=== PATIENT | male | born 1955 | race Caucasian/White ===

== ENCOUNTER → 2016-03-22 | Outpatient (CLI) | payer BC, OTHER ==
[~2016-03-22] MED LIST: ISOVUE-370 76% 100ML VIAL (Q9967) As Ordered ONE
--- NOTE | 2016-03-22 12:09 | REP ---
CT ANGIO HEAD: HISTORY: Carotid stenosis. CONTRAST: Isovue 370, 100 mL. There is no aneurysm, arteriovenous malformation or atherosclerotic lesion. There is origin of the left posterior cerebral artery. Major intracranial vessels are patent. The vertebral artery is equal in size. IMPRESSION: Normal CT angio head. Signed by Garfield Macias MD 03/22/2016 12:15 P
--- NOTE | 2016-03-22 12:11 | REP ---
CT ANGIO NECK: HISTORY: Stenosis. CONTRAST: Isovue 370, 100 mL. The distal common carotid arteries and origins of the external and internal carotid arteries are normal. The vertebral arteries are equal in size and patent. There are no atherosclerotic lesions. IMPRESSION: Normal CT angio neck. Signed by Garfield Macias MD 03/22/2016 12:15 P
== END ==
LOC: M RAD 10:39
PROVIDERS: ATTEND Neurological Surgery
DX: I65.23 Occlusion and stenosis of bilateral carotid arteries (principal)
CPT/HCPCS: 70496; 70498; Q9967

== ENCOUNTER → 2017-03-10 | Outpatient (CLI) | payer BC, OTHER ==
[~2017-03-10] MED LIST changes: +ISOVUE-370 76% 100ML VIAL (Q9967) As Ordered; -ISOVUE-370 76% 100ML VIAL (Q9967) As Ordered ONE
== END ==
LOC: M RAD 12:41
DX: I66.09 Occlusion and stenosis of unspecified middle cerebral artery (principal)
CPT/HCPCS: Q9967

== ENCOUNTER → 2018-01-03 | Outpatient (CLI) | payer BC, OTHER | LOC: M SLEEP HO 10:49 | DX: R06.83 Snoring (principal) | CPT/HCPCS: G0399 ==

== ENCOUNTER → 2018-07-18 | Outpatient (CLI) | payer BC, OTHER ==
--- NOTE | 2018-07-18 10:38 | REP ---
MRA CAROTIDS WITHOUT CONTRAST: HISTORY: Infarction. COMPARISON: CT ANGIO neck 03/10/2017. The distal common carotid arteries and origins of the external and internal carotid arteries are normal. The vertebral arteries are equal in size and patent. There are no atherosclerotic lesions. IMPRESSION:Normal MRA carotids. Electronically Signed by Garfield Macias MD 07/18/2018 11:06 A
--- NOTE | 2018-07-18 10:46 | REP ---
MRA Brain without contrast History: Middle cerebral artery stenosis Comparison: CT ANGIO 03/10/2017 3-D [id number] MR angiography was performed at the level of the lower [place]. There is no aneurysm or arteriovenous malformation. Mild atherosclerotic disease involves the cavernous internal carotid arteries , M1 segment of the left middle cerebral artery and the left middle cerebral artery trifurcation. The A1 segment of the left anterior cerebral artery is hypoplastic. There is origin of the left posterior cerebral artery. The vertebral arteries are equal in size. Impression: 1. There is no aneurysm or arteriovenous malformation. 2. Atherosclerotic disease as described above. Electronically Signed by Garfield Macias MD 07/18/2018 10:37 A
== END ==
LOC: M RAD 08:36
DX: I66.09 Occlusion and stenosis of unspecified middle cerebral artery (principal); I65.23 Occlusion and stenosis of bilateral carotid arteries

== ENCOUNTER → 2018-09-06 | Outpatient (REF) | payer BC, OTHER ==
[2018-09-06 16:45] LABS: BASO % 0.7 % (0.0-1.0); EOS # 0.1 10^3/uL (0.0-0.50); EOS % 2.8 % (0.0-3.0); HEMATOCRIT 42.3 % (42.0-52.0); HEMOGLOBIN 13.8 g/dl (13.5-17.5); LYMPH # 0.9 10^3/uL (1.5-4.5); LYMPH % 20.3 % (24.0-44.0); MEAN CORPUSCULAR HEMOGLOBIN 31.2 pg (27.0-33.0); MEAN CORPUSCULAR HGB CONC 32.6 g/dl (32.0-36.5); MEAN CORPUSCULAR VOLUME 95.7 fl (80.0-96.0); MONO # 0.6 10^3/uL (0.0-0.8); MONO % 13.5 % (0.0-5.0); NEUTROPHILS # 2.7 10^3/uL (1.8-7.7); NEUTROPHILS % 62.5 % (36.0-66.0); PLATELET COUNT, AUTOMATED 157 10^3/uL (150-450); RED BLOOD COUNT 4.42 10^6/uL (4.30-6.10); WHITE BLOOD COUNT 4.3 10^3/uL (4.0-10.0)
[2018-09-06 16:54] LABS: APPEARANCE, URINE CLEAR (CLEAR); BACTERIA, URINE AUTO NEGATIVE (NEGATIVE); BILIRUBIN, URINE AUTO NEGATIVE (NEGATIVE); BLOOD, URINE BLOOD 1+ (NEGATIVE); COLOR, URINE COLORLESS (YELLOW); GLUCOSE, URINE (UA) AUTO NEGATIVE (NEGATIVE); KETONE, URINE AUTO NEGATIVE (NEGATIVE); LEUKOCYTE ESTERASE, URINE AUTO NEGATIVE (NEGATIVE); NITRITE, URINE AUTO NEGATIVE (NEGATIVE); PROTEIN, URINE AUTO NEGATIVE (NEGATIVE); RBC, URINE AUTO 0 /HPF (0-3); SPECIFIC GRAVITY URINE AUTO 1.003 (1.002-1.035); SQUAMOUS EPITHELIAL CELL UR AU 0 /HPF (0-6); UROBILINOGEN, URINE AUTO 0.2 mg/dL (0.0-2.0); WBC, URINE AUTO 0 /HPF (0-3)
[2018-09-06 16:55] LABS: ALBUMIN 3.9 GM/DL (3.2-5.2); ALT/SGPT 36 U/L (12-78); BILIRUBIN,TOTAL 0.6 MG/DL (0.2-1.0); BLOOD UREA NITROGEN 14 MG/DL (7-18); CALCIUM LEVEL 8.3 MG/DL (8.8-10.2); CARBON DIOXIDE LEVEL 31 MEQ/L (21-32); CHLORIDE LEVEL 106 MEQ/L (98-107); CHOLESTEROL LEVEL 133 MG/DL (<200); CREATININE FOR GFR 0.73 MG/DL (0.70-1.30); GLOMERULAR FILTRATION RATE > 60.0 (>49); GLUCOSE, FASTING 78 MG/DL (70-100); HDL CHOLESTEROL 38 MG/DL (>40); LDL CHOLESTEROL 55 MG/DL (<100); NON-HDL-C 95 MG/DL; POTASSIUM SERUM 3.7 MEQ/L (3.5-5.1); SODIUM LEVEL 141 MEQ/L (136-145); TOTAL PROTEIN 6.7 GM/DL (6.4-8.2); TRIGLYCERIDES LEVEL 198 MG/DL (<150)
== END ==
LOC: M SFHCLERA 10:33
PROVIDERS: ATTEND Family Medicine
DX: R97.20 Elevated prostate specific antigen [PSA] (principal); E78.5 Hyperlipidemia, unspecified; E66.3 Overweight; I10 Essential (primary) hypertension
CPT/HCPCS: 80053; 80061; 81001; 83036; 84443; 85025; G0103

== ENCOUNTER → 2019-06-11 | Outpatient (CLI) | payer BC, OTHER, MEDICARE ==
[2019-06-11 16:44] LABS: ALBUMIN 3.9 GM/DL (3.2-5.2); ALT/SGPT 30 U/L (12-78); BILIRUBIN,TOTAL 0.5 MG/DL (0.2-1.0); BLOOD UREA NITROGEN 14 MG/DL (7-18); CALCIUM LEVEL 8.9 MG/DL (8.8-10.2); CARBON DIOXIDE LEVEL 30 MEQ/L (21-32); CHLORIDE LEVEL 104 MEQ/L (98-107); CREATININE FOR GFR 0.74 MG/DL (0.70-1.30); GLOMERULAR FILTRATION RATE > 60.0 (>49); GLUCOSE, FASTING 87 MG/DL (70-100); LDH LACTATE DEHYDROGENASE 134 U/L (87-241); POTASSIUM SERUM 3.5 MEQ/L (3.5-5.1); SODIUM LEVEL 140 MEQ/L (136-145); TOTAL PROTEIN 6.4 GM/DL (6.4-8.2)
[2019-06-11 16:48] LABS: BASO % 0.6 % (0.0-1.0); EOS # 0.1 10^3/uL (0.0-0.5); EOS % 2.9 % (0.0-3.0); HEMOGLOBIN 12.7 g/dl (13.5-17.5); LYMPH % 20.4 % (24.0-44.0); MEAN CORPUSCULAR HEMOGLOBIN 30.5 pg (27.0-33.0); MEAN CORPUSCULAR HGB CONC 32.6 g/dl (32.0-36.5); MEAN CORPUSCULAR VOLUME 93.5 fl (80.0-96.0); MONO # 0.4 10^3/uL (0.0-0.8); MONO % 9.2 % (0.0-5.0); NEUTROPHILS # 3.2 10^3/uL (1.5-8.5); NEUTROPHILS % 66.7 % (36.0-66.0); PLATELET COUNT, AUTOMATED 146 10^3/uL (150-450); RED BLOOD COUNT 4.17 10^6/uL (4.30-6.10); WHITE BLOOD COUNT 4.8 10^3/uL (4.0-10.0)
== END ==
LOC: M WUC 13:51
PROVIDERS: ATTEND Internal Medicine Hematology & Oncology
DX: C83.36 Diffuse large B-cell lymphoma, intrapelvic lymph nodes (principal)

== ENCOUNTER → 2019-06-25 | Outpatient (CLI) | payer MEDICARE, OTHER ==
[~2019-06-25] MED LIST changes: +GASTROGRAFIN SOLUTION 30ML (Q9963) As Ordered ONE; -ISOVUE-370 76% 100ML VIAL (Q9967) As Ordered; +ISOVUE-370 76% 100ML VIAL As Ordered ONE
--- NOTE | 2019-06-25 14:15 | REP ---
REASON: History of lymphoma. All prior chest CTs were reviewed, the latest of which is dated 08/19/2014. Contrast today 100 mL Isovue 370. Mediastinum and pulmonary dinorah are within normal limits. There is no mass or adenopathy. There are no pleural or pericardial effusions. The imaged osseous structures are stable and intact. IMPRESSION: Evaluation of the lung [place] shows no new abnormal nodules, masses, or opacities. IMPRESSION: Stable CT examination of the chest. There is no evidence of acute recurrent disease. Electronically Signed by Kirill Antonio DO 06/25/2019 03:08 P
--- NOTE | 2019-06-25 14:20 | REP ---
REASON: Followup lymphoma. Latest prior for comparison 08/19/2014. All other priors were also reviewed. CONTRAST: 100 mL Isovue 370. The liver, gallbladder, spleen, pancreas, kidneys are unchanged and within normal limits. There is slight nodularity of the left adrenal gland status quo. The right adrenal gland is unremarkable and also stable. The abdominal aorta and para-aortic regions are within normal limits. The para-aortic adenopathy seen previously has resolved. Small lymph nodes are now present. The intra-abdominal bowel loops and their mesenteries are within normal limits. There is no intra-abdominal mass or adenopathy. There is no free fluid or free air. CT PELVIS: Pelvic sidewall adenopathy seen previously has resolved. Small pelvic sidewall lymph nodes are present. There is no free fluid or free air. The pelvic bowel loops and their mesenteries are within normal limits. Bone window technique throughout the examination shows the osseous structures to be stable and intact. IMPRESSION: There is no evidence of acute or recurrent disease. Findings as described above. Electronically Signed by Kirill Antonio DO 06/25/2019 03:08 P
== END ==
LOC: M RAD 10:57
PROVIDERS: ATTEND Nurse Practitioner Family
DX: C85.90 Non-Hodgkin lymphoma, unspecified, unspecified site (principal)
CPT/HCPCS: 71260; 74177; Q9963; Q9967

== ENCOUNTER → 2019-08-07 | Outpatient (CLI) | payer MEDICARE, OTHER ==
[2019-08-07 14:30] LABS: BLOOD UREA NITROGEN 13 MG/DL (7-18); CREATININE FOR GFR 0.82 MG/DL (0.70-1.30); GLOMERULAR FILTRATION RATE > 60.0 (>49)
== END ==
LOC: M WUC 10:37
PROVIDERS: ATTEND Neurological Surgery
DX: I66.09 Occlusion and stenosis of unspecified middle cerebral artery (principal)

== ENCOUNTER → 2019-11-03 | Outpatient (CLI) | payer MEDICARE, OTHER | LOC: M LABSMTC 09:50 | PROVIDERS: ATTEND Pediatrics | DX: Z20.828 Contact with and (suspected) exposure to other viral communicable diseases (principal) ==

== ENCOUNTER → 2019-11-16 | Outpatient (CLI) | payer MEDICARE, OTHER, SELFPAY | LOC: M LABSMTC 13:58 | PROVIDERS: ATTEND Pediatrics | DX: Z20.828 Contact with and (suspected) exposure to other viral communicable diseases (principal) ==

== ENCOUNTER → 2019-12-06 | Outpatient (CLI) | payer MEDICARE, OTHER, SELFPAY | LOC: M LABSMTC 10:53 | PROVIDERS: ATTEND Pediatrics | DX: Z11.59 Encounter for screening for other viral diseases (principal) ==

== ENCOUNTER → 2019-12-06 | Outpatient (CLI) | payer MEDICARE, OTHER ==
--- NOTE | 2019-12-06 08:43 | REP ---
INDICATION: SCREENING FOR AAA COMPARISON: None. TECHNIQUE: Real time graves scale ultrasound examination using curved array transducer. FINDINGS: The abdominal aorta is normal by sonographic evaluation without significant atherosclerotic changes and no evidence for aneurysm. Proximal aorta: Incompletely evaluated due to interposed bowel gas Aorta and renal arteries: 2.1 x 1.8 cm Mid aorta: 2.1 x 2.0 cm Distal aorta: 1.6 x 1.9 cm Right common iliac artery: 1.3 x 1.3 cm Left common iliac artery: 1.4 x 1.2 cm IMPRESSION: No evidence for abdominal aortic aneurysm. Mild ectasia to the bilateral common iliac arteries. <Electronically signed by Florin Galarza > 12/06/19 [id number]
== END ==
LOC: M RAD 08:01
PROVIDERS: ATTEND Family Medicine
DX: Z13.6 Encounter for screening for cardiovascular disorders (principal); I77.89 Other specified disorders of arteries and arterioles; R14.3 Flatulence

== ENCOUNTER → 2019-12-19 | Outpatient (CLI) | payer SELFPAY | LOC: M LABSMTC 11:52 | PROVIDERS: ATTEND Pediatrics | DX: Z20.828 Contact with and (suspected) exposure to other viral communicable diseases (principal) ==

== ENCOUNTER → 2020-01-09 | Outpatient (CLI) | payer SELFPAY | LOC: M LABSMTC 14:10 | PROVIDERS: ATTEND Pediatrics | DX: Z20.828 Contact with and (suspected) exposure to other viral communicable diseases (principal) ==

== ENCOUNTER → 2020-01-24 | Outpatient (CLI) | payer MEDICARE, OTHER ==
[~2020-01-24] MED LIST changes: +ASPI81TA26; +CLOP75TA2; +FOLI1TAB11; -GASTROGRAFIN SOLUTION 30ML (Q9963) As Ordered ONE; +INDA125TA; -ISOVUE-370 76% 100ML VIAL As Ordered ONE; +LIPI80TA PO; +POTA10CA32
== END ==
LOC: M LABSMTC 13:50
PROVIDERS: ATTEND Anesthesiology
DX: Z01.812 Encounter for preprocedural laboratory examination (principal); Z20.828 Contact with and (suspected) exposure to other viral communicable diseases

== ENCOUNTER → 2020-02-05 | Outpatient (CLI) | payer SELFPAY | LOC: M LABSMTC 13:21 | PROVIDERS: ATTEND Pediatrics | DX: Z20.828 Contact with and (suspected) exposure to other viral communicable diseases (principal) ==

== ENCOUNTER → 2020-11-10 | Outpatient (REF) ==
--- NOTE | 2020-11-10 09:21 | REP ---
INDICATION: PAIN/SOB. COMPARISON: None TECHNIQUE: AP and lateral views FINDINGS: There is a mild dextroconvex lumbar curve. There is mild disc space narrowing at every level but particularly seen at the L3-4 and L4-5 levels. There is degenerative facet joint changes seen bilaterally at all levels. Vertebral body height is within normal limits. There is slight anterior lipping seen at the L3-4 and L4-5 levels. IMPRESSION: Chronic changes as described above seen on this limited exam. <Electronically signed by Kirill Antonio > 11/10/20 [id number]
--- NOTE | 2020-11-10 09:23 | REP ---
INDICATION: PAIN/SOB. COMPARISON: Comparison chest x-ray December 18, 2005 TECHNIQUE: Two views.. FINDINGS: The lungs are somewhat hyperinflated but free of infiltrate. The pleural angles are sharp. Heart size is normal. Pulmonary vasculature is not increased. There are degenerative changes in the thoracic spine. IMPRESSION: Hyperinflation. Otherwise no acute disease. <Electronically signed by Manuel Terrazas > 11/10/20 [id number]
== END ==
LOC: M PLAIMG 08:54
PROVIDERS: ATTEND Internal Medicine
DX: R06.02 Shortness of breath (principal); M54.5 Low back pain; M51.36 Other intervertebral disc degeneration, lumbar region

== ENCOUNTER → 2023-01-21 | Outpatient (CLI) | payer MEDICARE, OTHER ==
[~2023-01-21] MED LIST changes: +INDA1.253; -INDA125TA; -POTA10CA32; +POTA10CA60
== END ==
LOC: M WUC 09:08
PROVIDERS: ATTEND Family Medicine
DX: R05.9 Cough, unspecified (principal)

== ENCOUNTER → 2023-02-04 | Outpatient (CLI) | payer MEDICARE, OTHER ==
[~2023-02-04] MED LIST changes: +ISOVUE-370 76% 100ML VIAL As Ordered ONE
== END ==
LOC: M RAD 08:01
PROVIDERS: ATTEND Family Medicine
DX: R05.3 Chronic cough (principal)
CPT/HCPCS: 71260; Q9967

== ENCOUNTER → 2023-02-28 | Outpatient (CLI) | payer MEDICARE, OTHER ==
[~2023-02-28] MED LIST changes: -ISOVUE-370 76% 100ML VIAL As Ordered ONE
== END ==
LOC: M CARPUL 09:30
PROVIDERS: ATTEND Family Medicine
DX: R05.9 Cough, unspecified (principal)

== ENCOUNTER 2023-04-20 10:07 | Outpatient (RCR) | payer MEDICARE, OTHER | END 2023-05-15 | LOC: M ST 10:07 | PROVIDERS: ATTEND Otolaryngology | DX: R49.0 Dysphonia (principal) ==

== ENCOUNTER 2023-06-08 08:02 | Outpatient (RCR) | payer MEDICARE, OTHER | END 2023-06-14 | LOC: M ST 08:02 | PROVIDERS: ATTEND Otolaryngology | DX: R49.0 Dysphonia (principal) ==

== ENCOUNTER → 2023-07-01 | Outpatient (CLI) | payer MEDICARE, OTHER ==
[~2023-07-01] MED LIST changes: -POTA10CA60; +POTA10CA70
== END ==
LOC: M PLAIMG 14:23
PROVIDERS: ATTEND Physician Assistant
DX: I77.810 Thoracic aortic ectasia (principal)

== ENCOUNTER → 2023-12-01 | Outpatient (REF) | payer MEDICARE, OTHER ==
[2023-12-01 14:01] LABS: FERRITIN 60.3 NG/ML (10.5-307.3); PERCENT SATURATION 35.8 % (19.7-50.0)
== END ==
LOC: M LAB REF 12:08
PROVIDERS: ATTEND Internal Medicine
DX: Z01.818 Encounter for other preprocedural examination (principal); M17.9 Osteoarthritis of knee, unspecified; M25.562 Pain in left knee

== ENCOUNTER → 2024-12-03 | Outpatient (REF) | payer MEDICARE, OTHER ==
[~2024-12-03] MED LIST changes: +ATOR-398 PO; -LIPI80TA PO
== END ==
LOC: M LAB REF 12:11
PROVIDERS: ATTEND Internal Medicine
DX: Z11.1 Encounter for screening for respiratory tuberculosis (principal)